=== PATIENT | male | born 1945 | race Caucasian/White ===

== ENCOUNTER → 2020-09-18 | Outpatient (CLI) | payer MEDICARE, BC ==
[2020-09-18 10:29] LABS: African American GFR (CKD) >90 (>60 ml/min/1.73 sqM); Blood Urea Nitrogen 18 mg/dL (9-20); Non-African American GFR(CKD) >90 (>60 ml/min/1.73 sqM)
== END | disposition home or self-care (01) ==
LOC: LABWHC1 08:35
PROVIDERS: ATTEND Internal Medicine
DX: I10 Essential (primary) hypertension (principal); E78.5 Hyperlipidemia, unspecified; Z95.2 Presence of prosthetic heart valve
CPT/HCPCS: 36415; 82565; 84520

== ENCOUNTER → 2020-09-24 | Outpatient (CLI) | payer MEDICARE, BC ==
[2020-09-24 09:07] LABS: African American GFR (CKD) >90 (>60 ml/min/1.73 sqM); Blood Urea Nitrogen 16 mg/dL (9-20); Non-African American GFR(CKD) >90 (>60 ml/min/1.73 sqM)
--- NOTE | 2020-09-24 11:16 | CT ---
EXAMINATION TYPE: CT angio chest DATE OF EXAM: 09/24/2020 COMPARISON: None HISTORY: [id number] male I71.4, history of aortic valve replacement, aortic aneurysm without rupture TECHNIQUE: Contiguous axial scanning of the chest performed without and with IV Contrast, patient inj ected with 100 mL of Isovue 370. Coronal/sagittal reconstructions performed. 3-D reconstructions gene rated on a dedicated independent workstation. CT DLP: 1050.3 mGycm Automated exposure control for dose reduction was used. FINDINGS: Median sternotomy wires are present. Prosthetic aortic valve. Heart upper limits of normal in size w ithout pericardial effusion. Three-vessel coronary artery calcifications are present. Mildly aneurysmal ascending aorta 4.0 cm. Mild atherosclerotic arch calcifications with conventional branching anatomy. Ectatic upper descending thoracic aorta at 3.2 cm. Mid descending thoracic aorta mildly ectatic at 2.7 cm. Distal descending thoracic aorta normal at 2.3 cm. Initial noncontrast images show no evidence for acute injury or hematoma. No aortic dissection. A couple prominent but nonenlarged left hilar lymph nodes measuring up to 1 cm. Otherwise, no thoraci c lymphadenopathy. Some dependent atelectasis is noted. Strandy scarring or atelectasis at the left base. There is a lobulated mass patients measuring 3.0 x 2.7 cm left suprahilar upper lobe. 4 mm pulmonary nodule left upper lobe, axial image 16. Visualized upper abdomen shows bilateral renal cysts measuring up to 2.9 cm on the left. There is an indeterminate 1 cm left adrenal nodule. Multiple moderate stool burden. Both interbody ankylosis near the thoracolumbar junction with accentuated lower thoracic kyphosis and anterior endplate spondylosis. Changes of DISH are present. IMPRESSION: 1. SUSPICIOUS LEFT SUPRAHILAR MASS MEASURING 3.0 CM. FINDINGS CONCERNING FOR LUNG CANCER. APPROPRIATE FURTHER WORKUP AND MANAGEMENT RECOMMENDED. 2. A NONSPECIFIC 4 MM SATELLITE NODULE IN THE LEFT UPPER LOBE. 3. NONSPECIFIC 1 CM NODULE IN THE LEFT ADRENAL GLAND . FOLLOW-UP RECOMMENDED. 4. MILD ANEURYSM ASCENDING AORTA AT 4.0 CM. ECTATIC UPPER DESCENDING THORACIC AORTA AT 3.2 CM. 5. PROSTHETIC AORTIC VALVE. THREE-VESSEL CORONARY ARTERY CALCIFICATIONS.
== END ==
LOC: RADCTMAIN 08:13
PROVIDERS: ATTEND Internal Medicine
DX: R91.1 Solitary pulmonary nodule (principal); I25.10 Atherosclerotic heart disease of native coronary artery without angina pectoris; I71.2 Thoracic aortic aneurysm, without rupture; E27.9 Disorder of adrenal gland, unspecified; Z95.2 Presence of prosthetic heart valve
CPT/HCPCS: 82565; 84520; 71275; 36415; Q9967